=== PATIENT | female | born 1960 | race Caucasian/White ===

== ENCOUNTER 2019-07-05 05:40 | Day surgery (SDC) | payer MEDICAID ==
[2019-07-01 15:29] LABS: BASOPHILS # (AUTO) 0.1 X10'3 (0-0.2); BASOPHILS % (AUTO) 0.9 % (0-1); EOSINOPHILS # (AUTO) 0.1 X10'3 (0-0.9); EOSINOPHILS % (AUTO) 2.1 % (0-6); LYMPHOCYTES # (AUTO) 1.6 X10'3 (1.1-4.8); LYMPHOCYTES % (AUTO) 29.2 % (21-51); MEAN CORPUSCULAR HEMOGLOBIN 30.4 PG (27.0-31.0); MEAN CORPUSCULAR HGB CONC 34.1 g/dL (33.0-36.5); MEAN CORPUSCULAR VOLUME 89.2 FL (78-98); MEAN PLATELET VOLUME 8.6 FL (7.4-10.4); MONOCYTES # (AUTO) 0.4 X10'3 (0-0.9); MONOCYTES % (AUTO) 6.5 % (2-12); NEUTROPHILS # (AUTO) 3.4 X10'3 (1.8-7.7); NEUTROPHILS % (AUTO) 61.3 % (42-75); PRE OP HEMATOCRIT 38.9 % (35.0-45.0); PRE OP HEMOGLOBIN 13.3 g/dL (12.0-16.0); PRE OP PLATELET COUNT 227 X10'3 (140-440); RED BLOOD COUNT 4.36 X10'6 (4.20-5.60); RED CELL DISTRIBUTION WIDTH 12.7 % (11.5-14.5)
[2019-07-01 15:44] LABS: ALBUMIN 3.6 G/DL (3.4-5.0); ALKALINE PHOSPHATASE 100 IU/L (46-116); BLOOD UREA NITROGEN 9 MG/DL (7-18); CALCIUM 9.7 MG/DL (8.5-10.1); CHLORIDE 104 MMOL/L (99-107); CREATININE 0.82 MG/DL (0.40-0.90); PRE OP ALT 16 U/L (30-65); PRE OP ANION GAP 4 (8-16); PRE OP AST 16 U/L (10-37); PRE OP BILIRUB, TOTAL 0.3 MG/DL (0.0-1.0); PRE OP GLUCOSE 81 MG/DL (70-104); PRE OP POTASSIUM 3.9 MMOL/L (3.4-5.1); PRE OP SODIUM 138 MMOL/L (135-145); TOTAL CARBON DIOXIDE 30.3 MMOL/L (24-32); TOTAL PROTEIN 7.1 G/DL (6.4-8.2); eGFR 72 ML/MIN
[2019-07-05] VITALS (13 sets, daily range): BP systolic 83–137; BP diastolic 50–79
[~2019-07-05] VITALS: Ht 172.7 cm; Wt 80.6 kg
[~2019-07-05 05:40] MED LIST: LACT1CAP65 PO; MULT-269 PO; MV-M1TAB22; [UNRECOGNIZED DRUG - OTHER]; cefazolin/dext.iso 2gm/50ml 50 ML IV ONE; famotidine 20mg tablet PO ONE; ringers solution, lacted 1,000 ML IV SCH
[2019-07-05] MEDS ORDERED: BUPIVAcaine/PF 2.5mg/ml (0.25%) 10ml vial ONE ×2 (06:38→08:34)
[2019-07-05] MEDS ORDERED: LIDOcaine 0.5% (5mg/ml) 50ml vial ONE (07:05)
--- NOTE | 2019-07-05 07:09 | NUR ---
2 SMALL CUTS HAND AND FOREARM, DR GARCIA AWARE
[2019-07-05] MEDS ORDERED: ringers solution, lacted 1,000 ML IV SCH (07:17)
[2019-07-05] MEDS ORDERED: proCHLORperazine 10 MG/2 ml inj IV PRN (07:20)
[2019-07-05] MEDS ORDERED: meperidine/PF 25mg/ml syringe IV PRN ×2 (07:20)
[2019-07-05] MEDS ORDERED: ondansetron/PF 4mg/2ml inj IV PRN (07:20)
[2019-07-05] MEDS ORDERED: morphine 4 MG/ML inj SYRINge IV PRN ×2 (07:20)
[2019-07-05] MEDS ORDERED: fentaNYL/PF 50MCG/1 ML 2ML syringe ONE (07:52)
[2019-07-05] MEDS ORDERED: midazolam 2 mg/2 ml injection ONE ×2 (07:52→07:56)
[2019-07-05] MEDS ORDERED: propofol inj 20 ML IV ONE (08:25)
--- NOTE | 2019-07-05 08:42 | NUR ---
Received from OR via [facility], accompanied by Anesthesiologist SHASHI and report given by Anesthesiolgist. Pt alert and responsive to all questions. Bradycardic MAP 65 all vitals reviewed by . O2 2L sats 98%. Pt has 20G left wrist IVF LR at 100cc/hr and right wrist wrapped, fingers able to be moved and good cap refill. No apparent swelling to fingers. Will continue to monitor. ICE pack to wrist.
[2019-07-05] MEDS: meperidine/PF 25mg/ml syringe IV PRN ×2 (09:12→09:22)
[2019-07-05] MEDS ORDERED: traMADol 50MG tablet PO ONE (09:25)
--- NOTE | 2019-07-05 09:38 | NUR ---
Pt appeared clammy and difficult to arouse about 15 mins after being brought to the recovery room, slightly clammy. Checked BG and it was 65, gave 3 juices and helped patient wake up more, BG recheck was 76. Pt now complaining of lots of pain. Has been given 50mg demerol and ultram still 10/10 pain. Will not give morphine as patient's BP has been on lower side. Will request non-opioid pain meds from .
[2019-07-05] MEDS ORDERED: ketorolac trometh. 30mg/ml inj. IV ONE (09:50)
[2019-07-05] MEDS ORDERED: acetaminophen 1,000mg/100ml IV 100 ML IV ONE (09:50)
--- NOTE | 2019-07-05 10:50 | NUR ---
Pt states pain much more under control after a total of 6mg morphine, / is toelrable for her. She states she feels ready to go home and start on her PO pain pills already filled at home. I told her to call Dr Daily's office if her pain becomes uncontrolled again. Gave her explicit instructions to continue elevating arm and she knows what symtpoms to look for if she needs to call MD with any other problems.
--- NOTE | 2019-07-05 11:22 | NUR ---
Pt discharged to vehicle by wheelchair without any issues. She and S/O have verbalized understanding of discharge information, they know to keep splint on until their appointment. IV DC'd. All belongings with patient, wearing her own clothes. Pt has ambulated and eaten and drank fluids. Pt has her own pain script at home already filled with pain meds.
== END 2019-07-05 11:22 | disposition home or self-care (01) ==
LOC: EEVIPCON 05:40 → PAS 05:40
PROVIDERS: ATTEND Orthopaedic Surgery Hand Surgery
DX: M18.11 Unilateral primary osteoarthritis of first carpometacarpal joint, right hand (principal); F32.9 Major depressive disorder, single episode, unspecified; M19.071 Primary osteoarthritis, right ankle and foot; Z98.890 Other specified postprocedural states; Z88.8 Allergy status to other drugs, medicaments and biological substances; Z85.828 Personal history of other malignant neoplasm of skin; Z79.899 Other long term (current) drug therapy
CPT/HCPCS: 25310; 25447; 36415; 80053; 85025; 93005; A6222; J0131; J1885; J2001; J2175; J2250; J2270; J2704; J3010; J3490; J7120; 82948; A4215

== ENCOUNTER 2023-12-07 13:40 | Emergency (ER) | payer MEDICAID ==
[~2023-12-07] VITALS: Ht 172.7 cm; Wt 114.8 kg
[~2023-12-07 13:40] MED LIST changes: -MV-M1TAB22; +MV-M1TAB77; -cefazolin/dext.iso 2gm/50ml 50 ML IV ONE; -famotidine 20mg tablet PO ONE; -ringers solution, lacted 1,000 ML IV SCH
[2023-12-07 13:50] VITALS: TEMP 98.2
[2023-12-07 15:25] VITALS: BP 125/76; PULSE 66; RESP 16; O2SAT 96
== END 2023-12-07 16:40 | disposition home or self-care (01) ==
LOC: ER 13:41
DX: S52.122A Displaced fracture of head of left radius, initial encounter for closed fracture (principal); W18.39XA Other fall on same level, initial encounter; Y93.89 Activity, other specified; Y92.89 Other specified places as the place of occurrence of the external cause; Y99.8 Other external cause status; M79.645 Pain in left finger(s); Z88.8 Allergy status to other drugs, medicaments and biological substances; Z79.899 Other long term (current) drug therapy
CPT/HCPCS: 29125; 73030; 73080; 73090; 73110; 73130; 99284; A4565

== ENCOUNTER 2024-01-20 14:10 | Emergency (ER) | payer MEDICAID ==
[~2024-01-20] VITALS: Ht 172.7 cm; Wt 113.6 kg
[2024-01-20 14:18] VITALS: TEMP 97.8
[2024-01-20 15:52] VITALS: BP 134/88; PULSE 68; RESP 18; O2SAT 98
== END 2024-01-20 16:02 | disposition home or self-care (01) ==
LOC: ER 14:10
DX: R60.0 Localized edema (principal); Z91.018 Allergy to other foods; Z79.899 Other long term (current) drug therapy
CPT/HCPCS: 93971; 99284; A6449

== ENCOUNTER 2024-06-15 08:15 | Outpatient (CLI) | payer MEDICAID | END 2024-06-15 23:59 | disposition home or self-care (01) | LOC: RAD 08:15 | PROVIDERS: ATTEND Physician Assistant | DX: M79.672 Pain in left foot (principal); M79.601 Pain in right arm | CPT/HCPCS: 73060; 73630 ==

== ENCOUNTER 2024-12-01 09:28 | Day surgery (SDC) | payer MEDICAID ==
[2024-12-01] VITALS (13 sets, daily range): BP systolic 93–108; BP diastolic 52–73; PULSE 56–71; RESP 14–20; TEMP 98.8; O2SAT 92–98
[~2024-12-01] VITALS: Ht 172.7 cm; Wt 109.4 kg
[2024-12-01] MEDS ORDERED: nitroGLYCERIN 0.4mg SUBLingual tab SL PRN ×2 (09:55→12:10)
[2024-12-01] MEDS ORDERED: MV-M1CAP18 (10:10)
[2024-12-01] MEDS ORDERED: fentaNYL/PF 50MCG/1 ML 2ML syringe ONE (10:12)
[2024-12-01] MEDS ORDERED: LIDOcaine 1% 30ml preserv. free vial ONE (10:12)
[2024-12-01] MEDS ORDERED: midazolam 1 mg/ML 2ml injection ONE ×2 (10:13→11:10)
[2024-12-01] MEDS ORDERED: iohexol 350MG/ML 100ml bottle IV ONE (10:13)
[2024-12-01] MEDS ORDERED: iohexol 350 MG/ML 50ML vial IV ONE (10:13)
[2024-12-01 10:33] LABS: EOSINOPHILS # (AUTO) 0.1 X10'3 (0-0.9); EOSINOPHILS % (AUTO) 1.6 % (0-6); HEMATOCRIT 41.5 % (35.0-45.0); HEMOGLOBIN 13.8 g/dl (12.0-16.0); LYMPHOCYTES # (AUTO) 1.5 X10'3 (1.1-4.8); LYMPHOCYTES % (AUTO) 34.3 % (21-51); MEAN CORPUSCULAR HEMOGLOBIN 29.1 PG (27.0-31.0); MEAN CORPUSCULAR HGB CONC 33.3 g/dL (33.0-36.5); MEAN CORPUSCULAR VOLUME 87.2 FL (78-98); MEAN PLATELET VOLUME 8.2 FL (7.4-10.4); MONOCYTES # (AUTO) 0.3 X10'3 (0-0.9); MONOCYTES % (AUTO) 6.2 % (2-12); NEUTROPHILS # (AUTO) 2.5 X10'3 (1.8-7.7); NEUTROPHILS % (AUTO) 56.9 % (42-75); PLATELET COUNT 227 X10'3 (140-440); RED BLOOD COUNT 4.76 X10'6 (4.20-5.60); RED CELL DISTRIBUTION WIDTH 13.5 % (11.5-14.5); WHITE BLOOD COUNT 4.4 X10'3 (4.5-11.0)
[2024-12-01] MEDS: diphenhydrAMINE 25mg capsule PO PRN (10:41)
[2024-12-01] MEDS: normal saline 1,000 ML IV SCH (10:41)
[2024-12-01] MEDS: LORazepam 0.5 MG tablet PO PRN (10:41)
[2024-12-01 10:44] LABS: INR 1.1 INR
[2024-12-01 10:46] LABS: ALBUMIN 3.6 G/DL (3.4-5.0); ANION GAP 5 (8-16); BLOOD UREA NITROGEN 11 MG/DL (7-18); BUN/CREATININE RATIO 14.7 (10.0-20.0); CALCIUM 9.7 MG/DL (8.5-10.1); CHLORIDE 108 MMOL/L (99-107); CREATININE 0.75 MG/DL (0.40-0.90); GLUCOSE 85 MG/DL (70-104); POTASSIUM 4.3 MMOL/L (3.5-5.1); SODIUM 140 MMOL/L (135-145); TOTAL CARBON DIOXIDE 27.2 MMOL/L (24-32); eCRCL 76 ML/MIN; eGFR 78 ML/MIN
[2024-12-01 10:56] LABS: APTT 26 SECONDS (22-32)
[2024-12-01] MEDS ORDERED: ondansetron/PF 4mg/2ml inj IV PRN (12:05)
[2024-12-01] MEDS ORDERED: normal saline 1000ml 1,000 ML IV SCH (12:05)
[2024-12-01] MEDS ORDERED: OXAZEpam 15mg capsule PO PRN (12:10)
[2024-12-01] MEDS ORDERED: HYDROcodone/acetaminophen 10/325mg tab PO PRN (12:10)
[2024-12-01] MEDS ORDERED: HYDROcodone/acetaminophen 5mg/325mg tablet PO PRN (12:10)
[2024-12-01] MEDS ORDERED: proCHLORperazine 10 MG/2 ml inj IV PRN (12:10)
== END 2024-12-01 18:20 | disposition home or self-care (01) ==
LOC: SSTAY O 09:28
PROVIDERS: ATTEND Internal Medicine Cardiovascular Disease
DX: R94.39 Abnormal result of other cardiovascular function study (principal); R07.89 Other chest pain; Z79.82 Long term (current) use of aspirin; Z79.899 Other long term (current) drug therapy; Z98.890 Other specified postprocedural states; Z87.891 Personal history of nicotine dependence
CPT/HCPCS: 36415; 71046; 80048; 85025; 85610; 85730; 93005; 93458; 99152; C1760; J1644; J2003; J2250; J3010; J7030; Q0163; Q9967; 99153; A6258